=== PATIENT | female | born 1985 | race African-American/Black ===

== ENCOUNTER 2023-09-09 19:30 | Inpatient (IN) | payer OTHER ==
[~2023-09-09 19:30] MED LIST: Bupivacaine 0.25% HCL 30 ML VIAL ONE
[2023-09-09 20:53] VITALS: BMI 43.3
[2023-09-09] MEDS ORDERED: Carboprost 250 MCG/ML AMP IM PRN (21:16)
[2023-09-09] MEDS ORDERED: Lidocaine 1% (PF) 30 ML VIAL SC PRN (21:16)
[2023-09-09] MEDS: Lactated Ringer's 1,000 ML IV SCH (21:16)
[2023-09-09] MEDS ORDERED: Methylergonovine 0.2 MG/ML VIAL IM PRN (21:16)
[2023-09-09] MEDS ORDERED: Misoprostol 200 MCG TAB PR PRN (21:16)
[2023-09-09] MEDS ORDERED: Ondansetron PF 4 MG/2 ML Vial IVP PRN (21:16)
[2023-09-09] MEDS ORDERED: Tranexamic Acid 1,000 MG/10 ML VIAL IVP PRN (21:16)
[2023-09-09] MEDS ORDERED: Acetaminophen 500 MG TAB PO PRN (21:16)
[2023-09-09] MEDS ORDERED: HYDROcodone/Acetaminophen 5/325 mg Tablet PO PRN (21:16)
[2023-09-09] MEDS ORDERED: Promethazine HCl 25 MG/ML VIAL IM PRN (21:16)
[2023-09-09] MEDS ORDERED: Ibuprofen 800 MG TAB PO PRN (21:16)
[2023-09-09] MEDS ORDERED: Diphenoxylate HCl/Atropine Tablet PO PRN (21:16)
[2023-09-09] MEDS ORDERED: hydrALAZINE 20 MG/ML VIAL SLOW IVP PRN (21:16)
[2023-09-09] MEDS ORDERED: fentaNYL 50 mcg/mL 1 mL Vial SLOW IVP PRN (21:16)
[2023-09-09 22:42] LABS: Hemoglobin 10.5 g/dL (12.0-15.5); Mean Corpuscular HGB CONC 32.8 g/dL (32.0-36.0); Mean Corpuscular Hemoglobin 27.1 pg (27.0-33.0); Mean Corpuscular Volume 82.7 fl (81.6-98.3); Platelet Count 331 10x3/uL (150-450); RBC Distribution Width 15.5 % (11.5-14.5); Red Blood Cell (RBC) Count 3.87 10x6/uL (3.90-5.03); White Blood Cell (WBC) Count 7.9 10x3/uL (3.5-10.5)
[2023-09-09] MEDS ORDERED: Misoprostol 100 MCG TAB ONE (23:00)
[2023-09-09] MEDS ORDERED: Oxytocin 30 units/NS 500 ML 500 ML IV SCH ×3 (23:00)
[2023-09-09] MEDS: Misoprostol 100 MCG TAB PO SCH (23:16)
[2023-09-09 23:35] LABS: Syphilis Antibody Nonreactive (Nonreactive); Syphilis Antibody Index 0.16 S/CO (<1.00 Non-Reactive)
[2023-09-09 23:38] LABS: HBSAg Index 0.22 S/CO (0-0.99); Hep B Surf Ag - L&D Non-Reactive S/CO (NonReactive)
[2023-09-10] MEDS: Lactated Ringer's 1,000 ML IV SCH (02:57)
[2023-09-10] MEDS: Labetalol HCl 100 MG TAB PO SCH ×2 (05:31→13:40)
[2023-09-10] MEDS ORDERED: fentaNYL/Ropivacaine Epidural 100 ML ONE (07:13)
[2023-09-10] MEDS ORDERED: diphenhydrAMINE 50 MG/ML VIAL IVP PRN (08:21)
[2023-09-10] MEDS ORDERED: Moisturizing Cream (Eucerin) 113 GM JAR TOP PRN (08:21)
[2023-09-10] MEDS ORDERED: ePHEDrine Sulfate 50 MG/10 ML VIAL SLOW IVP PRN (08:21)
[2023-09-10] MEDS ORDERED: Promethazine HCl 25 MG/ML VIAL IM PRN ×2 (08:21→19:04)
[2023-09-10] MEDS ORDERED: Ondansetron PF 4 MG/2 ML Vial IVP PRN ×3 (08:21→19:04)
[2023-09-10] MEDS ORDERED: Lactated Ringer's 500 ML IV PRN (08:21)
[2023-09-10] MEDS ORDERED: Acetaminophen 325 MG TAB PO PRN (08:21)
[2023-09-10] MEDS ORDERED: Naloxone HCl 0.4 mg/ml Vial IVP PRN ×2 (08:21)
[2023-09-10] MEDS ORDERED: Oxytocin 30 units/NS 500 ML 500 ML ONE (08:30)
[2023-09-10] MEDS ORDERED: Communication Order-Pharmacy FS SCH (08:30)
[2023-09-10] MEDS ORDERED: fentaNYL 2 mcg/Ropivacaine 0.2% Epidural 100 ML CADD EPIDURAL SCH (08:30)
[2023-09-10] MEDS ORDERED: Benzocaine-Menthol 82.5 ML CAN TOP PRN ×2 (09:30→19:04)
[2023-09-10] MEDS ORDERED: Dexmedetomidine 200 MCG/2 ML VIAL ONE (10:35)
[2023-09-10 11:48] LABS: Creatinine, Urine 92.82 mg/dL (47-110)
[2023-09-10] MEDS ORDERED: fentaNYL 50 mcg/mL 1 mL Vial ONE (12:39)
[2023-09-10] MEDS ORDERED: HYDROcodone/Acetaminophen 5/325 mg Tablet PO PRN (16:59)
[2023-09-10] MEDS ORDERED: Oxytocin 30 units/NS 500 ML 500 ML IV SCH (16:59)
[2023-09-10] MEDS ORDERED: hydrALAZINE 20 MG/ML VIAL SLOW IVP PRN ×2 (16:59→19:04)
[2023-09-10] MEDS ORDERED: Boostrix 0.5 ML (Tdap) VIAL (>/=7 yrs of age) IM ONE (16:59)
[2023-09-10] MEDS ORDERED: Milk Of Magnesia 30 ML UDCUP PO PRN ×2 (16:59→19:04)
[2023-09-10] MEDS ORDERED: Bisacodyl 10 MG SUPP PR PRN ×2 (16:59→19:04)
[2023-09-10] MEDS ORDERED: Ferrous Sulfate 325 MG TAB PO SCH (17:00)
[2023-09-10] MEDS ORDERED: Labetalol HCl 100 MG TAB PO SCH (19:00)
[2023-09-10] MEDS ORDERED: diphenhydrAMINE 25 MG CAP PO PRN (19:04)
[2023-09-10] MEDS ORDERED: Docusate 100 MG CAP PO SCH (21:00)
[2023-09-10] MEDS: Docusate 100 MG CAP PO SCH (21:09)
[2023-09-10] MEDS: Ibuprofen 800 MG TAB PO SCH (21:09)
[2023-09-10] MEDS: Labetalol HCl 200 MG TAB PO SCH (21:09)
[2023-09-10] MEDS ORDERED: Ibuprofen 800 MG TAB PO SCH (22:00)
[2023-09-11] MEDS: Misoprostol 100 MCG TAB PO SCH (03:18)
[2023-09-11] MEDS: Lactated Ringer's 1,000 ML IV SCH (03:21)
[2023-09-11] MEDS: Labetalol HCl 200 MG TAB PO SCH ×3 (05:57→21:45)
[2023-09-11] MEDS: Ibuprofen 800 MG TAB PO SCH ×3 (05:57→21:44)
[2023-09-11] MEDS: Ferrous Sulfate 325 MG TAB PO SCH ×2 (07:09→16:08)
[2023-09-11] MEDS: Prenatal Vitamin 1 TAB PO SCH (07:59)
[2023-09-11] MEDS: Docusate 100 MG CAP PO SCH ×2 (07:59→21:44)
[2023-09-11] MEDS ORDERED: Prenatal Vitamin 1 TAB PO SCH (09:00)
[2023-09-11] MEDS: HYDROcodone/Acetaminophen 5/325 mg Tablet PO PRN (20:19)
[2023-09-12] MEDS: HYDROcodone/Acetaminophen 5/325 mg Tablet PO PRN ×2 (04:13→08:28)
[2023-09-12] MEDS: Ibuprofen 800 MG TAB PO SCH ×2 (06:02→13:32)
[2023-09-12] MEDS: Labetalol HCl 200 MG TAB PO SCH ×2 (06:03→13:31)
[2023-09-12] MEDS: Ferrous Sulfate 325 MG TAB PO SCH (08:10)
[2023-09-12] MEDS: Prenatal Vitamin 1 TAB PO SCH (08:10)
[2023-09-12] MEDS: Docusate 100 MG CAP PO SCH (08:10)
[2023-09-12 15:11] VITALS: BP 146/92; TEMP 98.6
== END 2023-09-12 15:35 | disposition home or self-care (01) | DRG 807 ==
LOC: CSHLD 20:08 → CSHPP 09-10 18:57
PROVIDERS: ADMIT Family Medicine; ATTEND Family Medicine
PROC: 10E0XZZ Delivery of Products of Conception, External Approach (ICD-10-PCS; principal; 2023-09-10)
PROC: 10907ZC Drainage of Amniotic Fluid, Therapeutic from Products of Conception, Via Natural or Artificial Opening (ICD-10-PCS; 2023-09-10)
PROC: 3E0P7VZ Introduction of Hormone into Female Reproductive, Via Natural or Artificial Opening (ICD-10-PCS; 2023-09-10)
PROC: 3E033XZ Introduction of Vasopressor into Peripheral Vein, Percutaneous Approach (ICD-10-PCS; 2023-09-10)
PROC: 3E0334Z Introduction of Serum, Toxoid and Vaccine into Peripheral Vein, Percutaneous Approach (ICD-10-PCS; 2023-09-10)
DX: O99.214 Obesity complicating childbirth (principal); Z37.0 Single live birth; O09.523 Supervision of elderly multigravida, third trimester; Z3A.39 39 weeks gestation of pregnancy; O16.4 Unspecified maternal hypertension, complicating childbirth; O69.81X0 Labor and delivery complicated by cord around neck, without compression, not applicable or unspecified; O26.893 Other specified pregnancy related conditions, third trimester; Z67.41 Type O blood, Rh negative
CPT/HCPCS: 36415; 51702; 82570; 84156; 85027; 85461; 86780; 86850; 86870; 86900; 86901; 86922; 87340; 90384; 96372; J0360; J2405; J2590; J7120; S0020